=== PATIENT | female | born 1995 | race African-American/Black ===

== ENCOUNTER → 2017-08-08 | Outpatient (CLI) | payer OTHER ==
[~2017-08-08] MED LIST: BACTRIM DS TAB1 EACH PO; NORCO 5-325 TA1 EACH PO
== END ==
LOC: ULTRA 10:27
DX: N63.10 Unspecified lump in the right breast, unspecified quadrant (principal); N63.20 Unspecified lump in the left breast, unspecified quadrant

== ENCOUNTER 2017-11-26 17:04 | Emergency (ER) | payer OTHER ==
[~2017-11-26] VITALS: Ht 167.6 cm; Wt 113.4 kg
[2017-11-26] MEDS ORDERED: DEPO-PROVE150 MG/11 IM (17:20)
[2017-11-26 18:30] VITALS: BP 132/87
== END 2017-11-26 18:30 | disposition home or self-care (01) ==
LOC: ER 17:04
DX: J02.9 Acute pharyngitis, unspecified (principal)

== ENCOUNTER 2018-09-13 12:58 | Emergency (ER) | payer OTHER ==
[~2018-09-13] VITALS: Ht 165.1 cm; Wt 108.9 kg
[~2018-09-13 12:58] MED LIST changes: +DEPO-PROVE150 MG/11 IM
[2018-09-13 13:23] LABS: URINE BILIRUBIN NEGATIVE (Negative); URINE BLOOD 3+ (Negative); URINE CLARITY CLOUDY; URINE COLOR YELLOW; URINE GLUCOSE-RANDOM* NEGATIVE (Negative); URINE KETONES 1+ (Negative); URINE PROTEIN (DIPSTICK) 2+ (Negative); URINE SPECIFIC GRAVITY >= 1.030 (1.005-1.035); URINE UROBILINOGEN 0.2 E.U./dl (0.2-1.0)
[2018-09-13 13:24] LABS: URINE LEUKOCYTES-REFLEX 1+ (Negative); URINE NITRITE-REFLEX POSITIVE (Negative)
[2018-09-13 13:32] LABS: CASTS None Seen /LPF (None Seen); CRYSTALS None Seen /LPF (None Seen); SQUAMOUS >10 Many /LPF (0-3)
[2018-09-13 13:33] LABS: URINE RBC >20 Many /HPF (0-2)
[2018-09-13 13:34] LABS: URINE WBC-REFLEX 6-15 Few /HPF (0-5)
[2018-09-13 13:57] LABS: ABSOLUTE NEUTROPHILS 10.8 thou/uL (1.4-8.2); HEMOGLOBIN 13.2 gm/dL (12.0-15.0); LYMPHOCYTES 18.3 % (24.0-44.0); MCH 27.9 pg (26.0-34.0); MCHC 34.8 g/dL (28.0-37.0); MCV 80.2 fL (80.0-100.0); MONOCYTES 4.4 % (1.0-8.0); PLATELET COUNT 484 thou/uL (150-400); POLYS 76.3 % (36.0-66.0); RBC 4.74 mil/uL (4.20-5.00); WBC 14.1 thou/uL (4.0-11.0)
[2018-09-13 14:03] LABS: CALCIUM 9.4 mg/dL (8.5-10.1); CREATININE 1.1 mg/dL (0.6-1.0); POTASSIUM 4.2 mmol/L (3.5-5.1)
[2018-09-13 14:09] LABS: ALBUMIN 3.5 g/dL (3.4-5.0); TOTAL BILIRUBIN 0.4 mg/dL (<0.1-1.0); TOTAL PROTEIN 8.3 g/dL (6.4-8.2)
[2018-09-13] MEDS ORDERED: PHENERGAN 25 MG25 M1 PO (17:21)
[2018-09-13] MEDS ORDERED: KEFLEX500 M1 PO (17:21)
[2018-09-13] MEDS ORDERED: FLAGYL500 M1 PO (17:26)
[2018-09-13] MEDS ORDERED: AZITHROMYCIN 2250 MG PO (17:26)
[2018-09-13 17:32] VITALS: BP 133/64
== END 2018-09-13 17:40 | disposition home or self-care (01) ==
LOC: ER 12:58
PROVIDERS: Physician Assistant
DX: N39.0 Urinary tract infection, site not specified (principal); E86.0 Dehydration; D72.829 Elevated white blood cell count, unspecified; A59.9 Trichomoniasis, unspecified

== ENCOUNTER 2019-01-21 10:20 | Emergency (ER) | payer OTHER ==
[~2019-01-21] VITALS: Ht 165.1 cm; Wt 113.4 kg
[~2019-01-21 10:20] MED LIST changes: +AZITHROMYCIN 2250 MG PO; +FLAGYL500 M1 PO; +KEFLEX500 M1 PO; +PHENERGAN 25 MG25 M1 PO
[2019-01-21] MEDS ORDERED: LIDOCAINE PAIN1 EACH TRANSDERM (11:14)
[2019-01-21] MEDS ORDERED: IBUPROFEN 800800 M1 PO (11:14)
[2019-01-21 11:32] VITALS: BP 134/68
== END 2019-01-21 11:32 | disposition home or self-care (01) ==
LOC: ER 10:20
DX: M65.4 Radial styloid tenosynovitis [de Quervain] (principal)

== ENCOUNTER 2019-03-16 12:04 | Emergency (ER) | payer OTHER ==
[~2019-03-16] VITALS: Ht 165.1 cm; Wt 113.4 kg
[~2019-03-16 12:04] MED LIST changes: +IBUPROFEN 800800 M1 PO; +LIDOCAINE PAIN1 EACH TRANSDERM
[2019-03-16] MEDS ORDERED: IBUPROFEN 600600 M1 PO (14:02)
[2019-03-16 14:20] VITALS: BP 124/78
--- NOTE | 2019-03-16 15:04 | EKG ---
[address] [place] [address] ELECTROCARDIOGRAM REPORT Name: MIKHAIL MINOR DANNIELLECOOPER Room #: [facility] PARKDereck#: [id number] Admission: 03/16/19 Attend Phys: Discharge: Date of : [birth year] Report #: [id number] THIS REPORT FOR: //name// [facility] ED Test Date: 2019-03-16 Test Time: 12:06:27 Pat Name: MIKHAIL MINOR Department: Room: Gender: F Bobtailer: : 1995 Requested By: Aundrea Brown Order Number: [id number] MD: Galileo Batista Measurements Intervals [place] Rate: 80 P: 33 [place]: 138 QRS: 26 QRSD: 84 T: 12 QT: 376 QTc: 434 Interpretive Statements Sinus rhythm Low voltage, precordial leads No previous ECG available for comparison Electronically Signed On 03-16-2019 15:03:21 [employer]ARY [employer] by Galileo Batista [email or web address] <ELECTRONICALLY SIGNED> By: Galileo Batista MD 03/16/19 1503 [id number] [id number] Galileo Batista MD /SEEMA
== END 2019-03-16 14:20 | disposition home or self-care (01) ==
LOC: ER 12:04
DX: R07.89 Other chest pain (principal); E11.9 Type 2 diabetes mellitus without complications

== ENCOUNTER 2020-07-29 17:02 | Emergency (ER) | payer OTHER ==
[~2020-07-29] VITALS: Ht 165.1 cm; Wt 136.1 kg
[~2020-07-29 17:02] MED LIST changes: +IBUPROFEN 600600 M1 PO
[2020-07-29 17:23] VITALS: BP 147/99
[2020-07-29] MEDS ORDERED: NORCO5 PO (18:50)
[2020-07-29] MEDS ORDERED: PENICILLIN VK500 M1 PO (18:50)
== END 2020-07-29 18:56 | disposition home or self-care (01) ==
LOC: ER 17:02
DX: K08.89 Other specified disorders of teeth and supporting structures (principal); F12.90 Cannabis use, unspecified, uncomplicated; E11.9 Type 2 diabetes mellitus without complications; Z79.899 Other long term (current) drug therapy